=== PATIENT | female | born 1940 | race Caucasian/White ===

== ENCOUNTER 2022-10-31 07:15 | Outpatient (CLI) | payer MEDICARE ==
[~2022-10-31 07:15] MED LIST: GADOBUTROL 7.5 MMOL/7.5 ML VIAL ONE
[2022-10-31 08:23] LABS: CREATININE 0.6 mg/dL (0.4-1.0)
[2022-10-31] MEDS ORDERED: GADOBUTROL 7.5 MMOL/7.5 ML VIAL IVP ONE (12:25)
--- NOTE | 2022-10-31 14:41 | MRI Report ---
PROCEDURE: BRAIN W/WO INDICATIONS: Headache CONTRAST: gadavist 6.2ml TECHNIQUE: Noncontrast axial T1 spin echo, axial T2 fast spin echo, sagittal and axial FLAIR, coronal T2 fast sp in echo, axial gradient echo, axial diffusion and ADC through the brain. After the administration of contrast, axial and coronal T1 spin echo with fat saturation through the brain. COMPARISON: None. FINDINGS: Image quality: Excellent. CSF spaces: Basal cisterns are patent. No extra-axial fluid collections. Ventricles are normal in size and shape. Brain: No midline shift. No intracranial bleeds or masses. No abnormal intracranial enhancement. There is mild cerebral volume loss for age. There is severe periventricular white matter chronic sma ll vessel ischemic change. The brainstem appears normal. Diffusion-weighted images demonstrate no a cute ischemic insults. No chronic ischemic insults. Normal intravascular flow voids are present. Skull and face: Calvarial marrow is normal in signal. Orbits appear normal. Sinuses: Sinuses and mastoids appear clear. IMPRESSION: Mild global cerebral volume loss. Severe chronic microvascular ischemic changes. No acute finding. Reviewed by: Jason Gomez MD on 10/31/2022 2:40 PM PDT Approved by: Jason Gomez MD on 10/31/2022 2:40 PM PDT Station ID: [id number]
--- NOTE | 2022-10-31 14:45 | MRI Report ---
PROCEDURE: Brain Angio W/WO INDICATIONS: HEADACHE CONTRAST: Gadavist 6.2ml TECHNIQUE: Axial and Sagittal pre-contrast images were obtained through the head. Sagittal and Axial images wer e obtained after the administration of contrast in the arterial phases, with rotating 3-dimensional m aximum intensity projection (MIP) reformats constructed from subtraction images. COMPARISON: There are no comparisons for this study. FINDINGS: Image quality: Excellent. Anterior circulation: Intracranial internal carotid arteries demonstrate normal size and intraluminal flow signal. The flow within the paired anterior cerebral arteries is normal and symmetric. The flow within the middle cerebral arteries is normal and symmetric. The anterior communicating artery is se en. No stenosis, occlusions, or aneurysms are identified. Posterior circulation: Visualized portions of the vertebral arteries demonstrate normal caliber, and join to form a normal appearing basilar artery. The flow within the posterior cerebral arteries is no rmal and symmetric. No stenosis, occlusions, or aneurysms are identified. IMPRESSION: Unremarkable MR angiogram of the brain. No hemo-dynamically significant stenosis or occlusion of the major intracranial arterial circulation. No aneurysm or vascular malformation identified. Reviewed by: Jason Gomez MD on 10/31/2022 2:44 PM PDT Approved by: Jason Gomez MD on 10/31/2022 2:44 PM PDT Station ID: [id number]
== END 2022-10-31 07:16 | disposition home or self-care (01) ==
LOC: LAB 07:15
PROVIDERS: ATTEND Nurse Practitioner Family
DX: R51.9 Headache, unspecified (principal); Z82.49 Family history of ischemic heart disease and other diseases of the circulatory system; G31.89 Other specified degenerative diseases of nervous system; I67.82 Cerebral ischemia
CPT/HCPCS: 36415; 70546; 70553; 82565; A9585